=== PATIENT | female | born 1995 | race Caucasian/White ===

== ENCOUNTER → 2017-03-28 | Outpatient (CLI) | payer OTHER ==
[~2017-03-28] MED LIST: LINZESS145 MCG PO
--- NOTE | ~2017-03-28 | CR97 ---
[facility] A Service of [facility] & [facility] RADIOLOGY TEXT RESULTS PATIENT: ROSARIO OLEARY LOCATION: [facility] : [birth year] UNIT #: [id number] AGE: [address]: Leonardo Lyon MD SEX: F ORDER DR: [id number] [facility] [address] [place], [place] [address] [id number] O MR#: [id number] Acc #: [id number] NAME: ROSARIO OLEARY. : 1995 SEX: F STUDY DATE/TIME: 03/28/2017 8:22 UNIT: [facility] ROOM: STUDY DESCRIPTION: CR Esophagram Attending Physician: Leonardo Lyon M.D. Referring Physician: Leonardo Lyon M.D. Ordering Physician: Leonardo Lyon M.D. Primary Care Physician: Generic Doctor Not In System MEDICAL IMAGING REPORT This report is preliminary unless electronic signature is present EXAM Esophagram, 03/28 HISTORY Planned Lap-Band placement. PROCEDURE Study performed with 0.5 minutes of fluoroscopy and 4 spot images. FINDINGS Esophagus is normal in caliber without mass, stricture, ulceration or other abnormality and peristalsis is normal. IMPRESSION Normal esophagram. Dictated by... Alli Zavala M.D. THIS IS AN ELECTRONICALLY VERIFIED REPORT Alli Zavala M.D. at 03/28/2017 4:05 PM YAYO/sindi TD: 03/28/2017 10:44 JOB #: [id number] MEDICAL IMAGING REPORT Page 1 of 1 COPY
--- NOTE | ~2017-03-28 | EKG ---
PATIENT: ROSARIO OLEARY UNIT #: [id number] Ventricular Rate: 97 BPM Atrial Rate: 97 BPM P-R Interval: 152 ms QRS Duration: 96 ms Q-T Interval: 368 ms QTC Calculation(Bezet): 467 ms P [place]: 45 degrees Calculated R [place]: 33 degrees Calculated T [place]: 39 degrees Diagnosis Line: Normal sinus rhythm Diagnosis Line: Early repolarization Normal ECG Diagnosis Line: No previous ECGs available Diagnosis Line: Confirmed by MAE FINCH MD ([id number]) on 03/28/2017 Diagnosis Line: 5:51:49 PM INTERPRETING MD: JOSETTE CASTILLO
--- NOTE | ~2017-03-28 | CR63 ---
[facility] A Service of [facility] & [facility] RADIOLOGY TEXT RESULTS PATIENT: ROSARIO OLEARY LOCATION: [facility] : [birth year] UNIT #: [id number] AGE: [address]: Leonardo Lyon MD SEX: F ORDER DR: [id number] [facility] [address] [place], [place] [address] [id number] O MR#: [id number] Acc #: [id number] NAME: ROSARIO OLEARY. : 1995 SEX: F STUDY DATE/TIME: 03/28/2017 8:10 UNIT: [facility] ROOM: STUDY DESCRIPTION: CR Chest 2 View Attending Physician: Leonardo Lyon M.D. Referring Physician: Leonardo Lyon M.D. Ordering Physician: Leonardo Lyon M.D. Primary Care Physician: Generic Doctor Not In System MEDICAL IMAGING REPORT This report is preliminary unless electronic signature is present EXAM PA and lateral chest INDICATION Preop for Lap-Band surgery. COMPARISON No comparisons. FINDINGS The lungs are well expanded and clear. The heart size is normal. The visualized osseous structures are unremarkable. IMPRESSION Negative chest. Dictated by... Caleb Arias M.D. THIS IS AN ELECTRONICALLY VERIFIED REPORT Caleb Arias M.D. at 04/01/2017 7:20 AM [facility] TD: 03/28/2017 08:59 JOB #: [id number] MEDICAL IMAGING REPORT Page 1 of 1 COPY
[2017-03-28 09:12] LABS: HEMATOCRIT 40.9 % (35.0-45.0); HEMOGLOBIN 13.8 gm/dL (12.0-16.0); MEAN CORPUSCULAR HEMOGLOBIN 27.6 PG (28-34); MEAN CORPUSCULAR HGB CONC 33.7 g/dL (30-36); MEAN PLATELET VOLUME 7.9 FL (6.5-11.5); RED BLOOD COUNT 4.99 X10e (3.90-5.30); RED CELL DISTRIBUTION WIDTH 14.5 % (11.0-15.5); WHITE BLOOD COUNT 6.2 X10e3 (4.0-10.5)
[2017-03-28 09:41] LABS: BILIRUBIN,TOTAL 0.3 mg/dL (0.2-2.0); CALCIUM SERUM 9.3 mg/dL (8.4-10.2); CREATININE SERUM 0.5 mg/dL (0.6-1.4); GLOM FILT RATE Estimated 139.3 mL/min (>60); POTASSIUM 4.6 mmol/L (3.5-5.1); PROTEIN TOTAL SERUM 6.7 g/dL (6.0-8.3)
== END | disposition home or self-care (01) ==
LOC: CRAD 07:48 → CAMB 09:00
PROVIDERS: Surgery
DX: Z01.818 Encounter for other preprocedural examination (principal)
CPT/HCPCS: 36415; 71020; 74220; 80053; 80061; 84443; 85027; 93005